=== PATIENT | female | born 2000 | race Caucasian/White ===

== ENCOUNTER 2019-05-06 12:41 | Day surgery (SDC) | payer BC ==
[~2019-05-06] VITALS: Ht 162.6 cm; Wt 69.9 kg
[~2019-05-06 12:41] MED LIST: DIGESTIVE PROBIOTIC; PREVACID; TRILOSPRINTEC
[2019-05-06 14:25] VITALS: Ht 162.6 cm; Wt 69.9 kg
[2019-05-06 16:38] VITALS: BP 123/78; PULSE 75; RESP 18
[2019-05-06 18:05] VITALS: BP 124/82; PULSE 90; RESP 15
[2019-05-06 18:20] VITALS: BP 113/83; PULSE 72; RESP 13
== END 2019-05-06 21:51 | disposition home or self-care (01) ==
LOC: GIL 12:41
PROVIDERS: ATTEND Internal Medicine Gastroenterology
DX: K29.30 Chronic superficial gastritis without bleeding (principal)
CPT/HCPCS: 43239; 84703; 88305; 88312; Z7610